=== PATIENT | male | born 1975 | race Caucasian/White ===

== ENCOUNTER 2017-02-23 20:11 | Emergency (ER) | payer OTHER ==
[~2017-02-23] VITALS: Ht 185.4 cm; Wt 99.3 kg
[2017-02-23 22:13] VITALS: BP 127/72
== END 2017-02-23 22:13 | disposition left against medical advice (07) ==
LOC: ED 20:11
DX: Z53.21 Procedure and treatment not carried out due to patient leaving prior to being seen by health care provider (principal)

== ENCOUNTER 2017-02-24 07:24 | Emergency (ER) | payer OTHER ==
[2017-02-24 07:38] VITALS: BP 132/87
== END 2017-02-24 08:15 | disposition home or self-care (01) ==
LOC: ED 07:24
DX: F41.0 Panic disorder [episodic paroxysmal anxiety] (principal); Z86.59 Personal history of other mental and behavioral disorders

== ENCOUNTER 2018-09-11 05:45 | Emergency (ER) | payer OTHER ==
[~2018-09-11] VITALS: Ht 185.4 cm; Wt 107.5 kg
[2018-09-11 05:48] VITALS: Ht 185.4 cm; Wt 107.5 kg
[2018-09-11 06:22] VITALS: BP 123/74
== END 2018-09-11 06:22 | disposition home or self-care (01) ==
LOC: ED 05:45
DX: F41.9 Anxiety disorder, unspecified (principal); F32.9 Major depressive disorder, single episode, unspecified; M41.9 Scoliosis, unspecified

== ENCOUNTER 2018-09-18 08:20 | Emergency (ER) | payer OTHER ==
[~2018-09-18] VITALS: Ht 185.4 cm; Wt 108.0 kg
[2018-09-18 08:28] VITALS: BP 138/87; Ht 185.4 cm; Wt 108.0 kg
== END 2018-09-18 08:55 | disposition home or self-care (01) ==
LOC: ED 08:20
DX: Z02.79 Encounter for issue of other medical certificate (principal); F41.1 Generalized anxiety disorder; F32.9 Major depressive disorder, single episode, unspecified; Z98.890 Other specified postprocedural states

== ENCOUNTER 2019-05-02 17:21 | Emergency (ER) | payer OTHER ==
[~2019-05-02] VITALS: Ht 185.4 cm; Wt 106.1 kg
[2019-05-02 17:28] VITALS: BP 148/67; Ht 185.4 cm; Wt 106.1 kg
== END 2019-05-02 18:48 | disposition home or self-care (01) ==
LOC: ED 17:21
DX: F41.9 Anxiety disorder, unspecified (principal)

== ENCOUNTER 2019-05-07 22:21 | Emergency (ER) | payer OTHER ==
[~2019-05-07] VITALS: Ht 185.4 cm; Wt 104.8 kg
[2019-05-07 22:30] VITALS: Ht 185.4 cm; Wt 104.8 kg
[2019-05-08 00:40] LABS: BASOPHIL % 0.1 % (0-2); CALCIUM 9.1 mg/dL (8.5-10.1); CARBON DIOXIDE 28.3 mmol/L (21-32); CHLORIDE SERUM 106 mmol/L (98-107); CREATININE SERUM 1.1 mg/dL (0.7-1.3); GFR1 > 60 mL/min; GLUCOSE SERUM 128 mg/dL (74-106); PLATELET COUNT 191 x10^3mcL (130-400); POTASSIUM SERUM 3.8 mmol/L (3.5-5.1); RED CELL DISTRIBUTION WIDTH 13.1 % (11.5-14.5); SODIUM SERUM 143 mmol/L (136-145)
[2019-05-08 00:45] LABS: ALBUMIN 4.4 g/dL (3.4-5.0); ALKALINE PHOSPHATASE 83 U/L (46-116); ALT/SGPT 72 U/L (16-63); AST/SGOT 37 U/L (15-37); BILIRUBIN TOTAL 0.4 mg/dL (0.20-1.00); TOTAL PROTEIN, SERUM 7.6 g/dL (6.4-8.2)
[2019-05-08 02:37] VITALS: BP 115/63
== END 2019-05-08 02:38 | disposition home or self-care (01) ==
LOC: ED 22:21
PROVIDERS: Emergency Medicine
DX: R42 Dizziness and giddiness (principal); R11.10 Vomiting, unspecified; F41.9 Anxiety disorder, unspecified; F32.9 Major depressive disorder, single episode, unspecified; Z98.890 Other specified postprocedural states
CPT/HCPCS: J2405; J7030; J8597

== ENCOUNTER 2020-01-19 12:11 | Emergency (ER) | payer OTHER, SELFPAY ==
[~2020-01-19] VITALS: Ht 185.4 cm; Wt 104.3 kg
[2020-01-19 12:26] VITALS: Ht 185.4 cm; Wt 104.3 kg
[2020-01-19 13:58] LABS: CALCIUM 8.6 mg/dL (8.5-10.1); CARBON DIOXIDE 27.4 mmol/L (21-32); CHLORIDE SERUM 100 mmol/L (98-107); GFR1 > 60 mL/min; GLUCOSE SERUM 161 mg/dL (74-106); POTASSIUM SERUM 3.2 mmol/L (3.5-5.1); SODIUM SERUM 137 mmol/L (136-145)
[2020-01-19 14:05] LABS: ALBUMIN 3.8 g/dL (3.4-5.0); ALKALINE PHOSPHATASE 71 U/L (46-116); ALT/SGPT 39 U/L (16-63); AST/SGOT 30 U/L (15-37); BILIRUBIN TOTAL 0.7 mg/dL (0.20-1.00); TOTAL PROTEIN, SERUM 7.4 g/dL (6.4-8.2)
[2020-01-19 14:09] LABS: BASOPHIL % 0.2 % (0-2)
[2020-01-19 14:12] LABS: PLATELET COUNT 127 x10^3mcL (130-400)
[2020-01-19 14:34] LABS: UA SPECIFIC GRAVITY >=1.030 (1.005-1.035); microscopic required? YES; urine erythrocyte NEGATIVE (NEGATIVE)
[2020-01-19 15:03] VITALS: BP 117/73
== END 2020-01-19 15:03 | disposition home or self-care (01) ==
LOC: ED 12:11
PROVIDERS: Emergency Medicine
DX: R19.7 Diarrhea, unspecified (principal); R53.83 Other fatigue; R53.1 Weakness; R51 Headache; M79.10 Myalgia, unspecified site; M41.9 Scoliosis, unspecified
CPT/HCPCS: J2405; J7030

== ENCOUNTER 2020-08-13 16:44 | Emergency (ER) | payer SELFPAY ==
[~2020-08-13] VITALS: Ht 185.4 cm; Wt 104.3 kg
[2020-08-13 17:04] VITALS: Ht 185.4 cm; Wt 104.3 kg
[2020-08-13 18:32] VITALS: BP 124/81
== END 2020-08-13 18:32 | disposition home or self-care (01) ==
LOC: ED 16:44
DX: U07.1 COVID-19 (principal); I10 Essential (primary) hypertension; Z98.890 Other specified postprocedural states
CPT/HCPCS: U0003